=== PATIENT | female | born 1985 | race Hispanic/Latino ===

== ENCOUNTER 2019-12-03 08:48 | Emergency (ER) | payer SELFPAY ==
[2019-12-03] MEDS ORDERED: IPRATROPIUM/ALBUTEROL SULFATE 3 ML AMPUL.NEB IH ONE (10:43)
--- NOTE | 2019-12-03 10:51 | Emergency Department Report ---
HPI - General Chief Complaint: Upper Respiratory Infection Time Seen by Provider: 12/03/19 10:25 - HPI HPI: Room 36 The patient is a 34-year-old female presenting with a chief complaint of sore throat and cough. The patient states for the past several mornings she's had a scratchy throat. Patient states the pain increased this morning feeling as though she swallowed glass. Patient also missed a cough productive of yellowish green sputum since yesterday. Patient states her cough increased this morning. Patient admits to chest congestion. Patient denies history of fever or rhinorrhea Location: [See above] Duration: [See above] Quality: [See above] Severity: [See above] Timing: [See above] Context: [See above] Modifying factors: [See above] Associated signs and symptoms: [see above] ED Past Medical Hx - Past Medical History Previous Medical History?: No - Surgical History Additional Surgical History: tubal ligation, tonsillectomy - Family History Family history: no significant - Social History Smoking Status: Current Every Day Smoker (1/2 pack per day) Substance Use Type: None (denies illicit drug use), Alcohol (occasional) - Medications Home Medications: Home Medications Medication Instructions Recorded Confirmed Last Taken Type Albuterol INH(or & Nicu Only) 2 puff IH QID PRN #8.5 gram 12/03/19 Unknown Rx [ProAir HFA Inhaler] Amoxicillin [Amoxicillin TAB] 875 mg PO BID #14 tablet 12/03/19 Unknown Rx Benzonatate [Tessalon Perles] 100 mg PO Q8HR #30 capsule 12/03/19 Unknown Rx Ibuprofen [Motrin 800 MG tab] 800 mg PO Q8HR PRN #20 tablet 12/03/19 Unknown Rx ED Review of Systems ROS: Stated complaint: BRONCHITIS SYM Other details as noted in HPI Constitutional: denies: fever Eyes: denies: eye pain ENT: throat pain Respiratory: cough Endocrine: no symptoms reported Physical Exam - Physical Exam Vital Signs: Vital Signs 12/03/19 09:08 Temperature 98 F Pulse Rate 88 Respiratory 22 Rate Blood Pressure 134/67 O2 Sat by Pulse 95 Oximetry Physical Exam: GENERAL: The patient is well-developed well-nourished female lying on stretcher not appearing to be in acute distress [] HEENT: Normocephalic. Atraumatic. Extraocular motions are intact. Patient has moist mucous membranes. NECK: Supple. Trachea midline CHEST/LUNGS: Faint wheezing. Occasional cough. There is no respiratory distress noted. HEART/CARDIOVASCULAR: Regular. There is no tachycardia. There is no gallop rub or murmur. ABDOMEN: Abdomen is soft, nontender. Patient has normal bowel sounds. There is no abdominal distention. SKIN: There is no rash. There is no edema. There is no diaphoresis. NEURO: The patient is awake, alert, and oriented. The patient is cooperative. The patient has normal speech MUSCULOSKELETAL: There is no evidence of acute injury. ED Course Vital Signs 12/03/19 09:08 Temperature 98 F Pulse Rate 88 Respiratory 22 Rate Blood Pressure 134/67 O2 Sat by Pulse 95 Oximetry ED Medical Decision Making - Radiology Data Radiology results: report reviewed (chest x-ray), image reviewed (chest x-ray) interpreted by me: Chest x-ray-no definite focal infiltrates, no pneumothorax [facility] [address] [place] [address] XRay Report Signed Patient: DAKOTAH ESCAMILLA MR#: [id number] : 1985 Acct:[id number] Age/Sex: 34 / F ADM Date: 12/03/19 Loc: ED Attending Dr: Ordering Physician: KELLEY CAROLINA MD Date of Service: 12/03/19 Procedure(s): XR chest routine 2V Accession Number(s): [id number] cc: KELLEY CAROLINA MD Fluoro Time In Minutes: CHEST PA AND LATERAL VIEWS INDICATION: productive cough. COMPARISON: 02/07/2019. FINDINGS: Support devices: None. Heart: Within normal limits. Lungs/Pleura: No consolidation, pleural effusion, or pneumothorax. There are mild increased reticular markings within both lungs. IMPRESSION: 1. Increased reticular markings could be seen in the setting of lower airways disease. No consolidation. Signer Name: Anton Sanchez MD Signed: 12/03/2019 11:08 AM Workstation Name: [id number] Transcribed By: YUDI Dictated By: Anton Sanchez MD Electronically Authenticated By: Anton Sanchez MD Signed Date/Time: 12/03/19 110 DD/ 110 TD/TT: - Differential Diagnosis acute bronchitis, pneumonia, pharyngitis Critical care attestation.: If time is entered above; I have spent that time in minutes in the direct care of this critically ill patient, excluding procedure time. ED Disposition Clinical Impression: Acute bronchitis, Pharyngitis Disposition: TO HOME OR SELFCARE Is pt being admited?: No Does the pt Need Aspirin: No Condition: Stable Instructions: Acute Bronchitis (ED) Additional Instructions: Return to the emergency department should you develop worsening symptoms, inability to tolerate food or liquids, high fever or any other concerns Prescriptions: Amoxicillin [Amoxicillin TAB] 875 mg PO BID #14 tablet Ibuprofen [Motrin 800 MG tab] 800 mg PO Q8HR PRN #20 tablet PRN Reason: Pain, Moderate (4-6) Albuterol INH(or & Nicu Only) [ProAir HFA Inhaler] 2 puff IH QID PRN #8.5 gram PRN Reason: Shortness Of Breath Benzonatate [Tessalon Perles] 100 mg PO Q8HR #30 capsule Referrals: PRIMARY CARE, [Primary Care Provider] - 3-5 Days Time of Disposition: 11:21
--- NOTE | 2019-12-03 11:12 | XRay Report ---
CHEST PA AND LATERAL VIEWS INDICATION: productive cough. COMPARISON: 02/07/2019. FINDINGS: Support devices: None. Heart: Within normal limits. Lungs/Pleura: No consolidation, pleural effusion, or pneumothorax. There are mild increased reticular markings within both lungs. IMPRESSION: 1. Increased reticular markings could be seen in the setting of lower airways disease. No consolidati on. Signer Name: Anton Sanchez MD Signed: 12/03/2019 11:08 AM Workstation Name: [id number]
[2019-12-03 11:28] VITALS: BP 134/71
== END 2019-12-03 11:27 | disposition home or self-care (01) ==
LOC: ED 08:48
DX: J20.9 Acute bronchitis, unspecified (principal); F17.200 Nicotine dependence, unspecified, uncomplicated; Z98.51 Tubal ligation status; Z90.89 Acquired absence of other organs; Z79.899 Other long term (current) drug therapy; Z91.010 Allergy to peanuts; Z88.8 Allergy status to other drugs, medicaments and biological substances
CPT/HCPCS: 71046; 94640; 94644